=== PATIENT | male | born 1980 | race Caucasian/White ===

== ENCOUNTER 2017-10-09 20:56 | Emergency (ER) | payer SELFPAY ==
[~2017-10-09] VITALS: Ht 177.8 cm; Wt 99.8 kg
[2017-10-09 22:19] VITALS: BP 136/81
[2017-10-09] MEDS ORDERED: VALACYCLOVIR HCL 500 MG TABLET ONE (22:41)
[2017-10-09] MEDS ORDERED: VALACYCLOVIR HCL 500 MG TABLET PO ONE (23:00)
== END 2017-10-09 22:45 | disposition home or self-care (01) ==
LOC: ER 21:03
DX: B02.9 Zoster without complications (principal); M54.9 Dorsalgia, unspecified
CPT/HCPCS: A4606; Z7610